=== PATIENT | male | born 1970 ===

== ENCOUNTER 2017-12-19 06:10 | Emergency (ER) | payer MEDICAID, OTHER ==
[2017-12-19 06:11] VITALS: BMI 34.9
[2017-12-19] MEDS ORDERED: Sodium Chloride 0.9% 1,000 ML IV ONE (06:34)
--- NOTE | 2017-12-19 06:40 | C.PDOC ---
Addendum entered and electronically signed by Sendy Lopez APN 12/19/17 09:39: - ECG O2 Sat by Pulse Oximetry: 96 Pulse Ox Interpretation: Normal - Progress Re-evaluation Time: 09:30 (Alert awake requesting discharge so he can go to work) Condition: Re-examined Addendum entered and electronically signed by Sendy Lopez APN 12/19/17 09:37: Disposition Counseled Patient/Family Regarding: Diagnosis, Need For Followup Clinical Impression: Opioid overdose Disposition: HOME/ ROUTINE Disposition Time: 09:40 Condition: STABLE Additional Instructions: Follow up with your PMD for further evaluation Stop drug use Instructions: Opioid Use Disorder, Narcotic Overdose Referrals: Curry Cheema MD [Medical Doctor] - [facility] [Outside] [facility] [Outside] [facility] [Outside] Stand Alone Forms: [facility] (Malay) - POA Present On Arrival: None Original Note: History Of Present Illness 47 year old male with a history of pre-diabetes, schizophrenia, and bipolar disorder is brought into the emergency department by EMS; pt found with agonal breathing and EMS reports giving 2mg Narcan intranasally with return of consciousness. Patient admits to snorting one bag of heroin earlier today, and states that he has not used in 3-4 months, and states he used because he was mad at his mother. Patient denies HI, SI, auditory/visual hallucinations, and physical complaints. Time Seen by Provider: 12/19/17 06:24 Chief Complaint (Nursing): Substance Abuse History Per: Patient, EMS History/Exam Limitations: no limitations Onset/Duration Of Symptoms: Hrs Suicide/Self Injury Attempted (Context): None Modifying Factor(s): Other (heroin) Associated Symptoms: denies: Suicidal Thoughts, Suicidal Plan, Other (homicidal ideation, auditory/visual hallucinations) Additional History Per: EMS Past Medical History Reviewed: Historical Data, Nursing Documentation, Vital Signs Vital Signs: Last Vital Signs Temp 98.7 F 12/19/17 06:13 Pulse 86 12/19/17 06:13 Resp 20 12/19/17 06:13 BP 129/86 12/19/17 06:13 Pulse Ox 96 12/19/17 06:13 - Medical History PMH: Depression, HTN, Hypercholesterolemia Surgical History: No Surg Hx - [facility] APPLICATION OF SPLINT (08/03/12) Family History: States: No Known Family Hx - Social History Hx Tobacco Use: Yes (2/3 per day, black and mild) Hx Alcohol Use: No Hx Substance Use: Yes - Immunization History Hx Tetanus Toxoid Vaccination: No Hx Influenza Vaccination: No Hx Pneumococcal Vaccination: No Review Of Systems Constitutional: Negative for: Fever, Chills Respiratory: Positive for: Shortness of Breath (agonal breathing) Gastrointestinal: Negative for: Nausea, Vomiting Physical Exam - Physical Exam Appears: Non-toxic, No Acute Distress Skin: Warm, Dry Head: Atraumatic, Normacephalic Eye(s): bilateral: Other (small pupils) Oral Mucosa: Moist Neck: Normal, Supple Chest: Symmetrical, No Tenderness Cardiovascular: Rhythm Regular, No Murmur Respiratory: No Rales, No Rhonchi, No Wheezing Gastrointestinal/Abdominal: Soft, No Tenderness, No Guarding, No Rebound Extremity: Normal ROM (all extremities) Neurological/Psych: Oriented x3, Normal Speech, Normal Cognition ED Course And Treatment O2 Sat by Pulse Oximetry: 96 (RA) Pulse Ox Interpretation: Normal Medical Decision Making Medical Decision Making: Plan: NaCl IV Fluids observe re-eval/ Disposition - Disposition Disposition Time: 07:10 Condition: STABLE Forms: [facility] (Malay) - Clinical Impression Clinical Impression: Opioid overdose - PA / TAR POT MAN / Resident Statement MD/DO has reviewed & agrees with the documentation as recorded. - Scribe Statement The provider has reviewed the documentation as recorded by the Scribe (Phan Seo) All medical record entries made by the Scribe were at my direction and personally dictated by me. I have reviewed the chart and agree that the record accurately reflects my personal performance of the history, physical exam, medical decision making, and the department course for this patient. I have also personally directed, reviewed, and agree with the discharge instructions and disposition. Physician Patient Turnover Patient Signed Over To: Sendy Lopez Handoff Comments: observe for sobriety; may need more narcan. d/c when sober, refer to detox.
[2017-12-19 07:52] VITALS: TEMP 98.2
[2017-12-19 09:29] VITALS: BP 118/76; PULSE 89; RESP 16; O2SAT 96
== END 2017-12-19 11:02 | disposition home or self-care (01) ==
LOC: C.ER 06:10
DX: T40.2X1A Poisoning by other opioids, accidental (unintentional), initial encounter (principal); Y92.9 Unspecified place or not applicable
CPT/HCPCS: 96360; 99285; J7030